=== PATIENT | female | born 1970 | race Caucasian/White ===

== ENCOUNTER 2021-06-24 18:28 | Emergency (ER) | payer OTHER ==
[~2021-06-24] VITALS: Ht 154.9 cm; Wt 71.0 kg
[2021-06-24] MEDS ORDERED: HYDROCO/APAP1 TA9 PO (18:58)
[2021-06-24 20:54] VITALS: BP 130/76
== END 2021-06-24 21:14 | disposition home or self-care (01) | DRG 563 ==
LOC: ED 18:28
PROC: 0SSGXZZ Reposition Left Ankle Joint, External Approach (ICD-10-PCS; principal; 2021-06-24)
DX: S82.852A Displaced trimalleolar fracture of left lower leg, initial encounter for closed fracture (principal); V86.95XA Unspecified occupant of 3- or 4- wheeled all-terrain vehicle (ATV) injured in nontraffic accident, initial encounter; Y92.833 Campsite as the place of occurrence of the external cause